=== PATIENT | female | born 1965 | race Caucasian/White ===

== ENCOUNTER 2017-02-24 08:32 | Day surgery (SDC) | payer OTHER ==
[~2017-02-24] VITALS: Ht 162.6 cm; Wt 99.8 kg
[2017-02-24 09:16] LABS: BASOPHILS # (AUTO) 0.3 K/uL (0.00-0.22); BASOPHILS % (AUTO) 3.9 % (0.0-2.0); EOSINOPHILS # (AUTO) 0.5 K/uL (0-0.4); EOSINOPHILS % (AUTO) 6.1 % (0.0-4.0); HEMATOCRIT 41.2 % (36-48); HEMOGLOBIN 13.2 g/dL (12.0-16.0); LYMPHOCYTES # (AUTO) 2.7 K/uL (2.5-16.5); LYMPHOCYTES % (AUTO) 33.2 % (20.5-51.1); MEAN CORPUSCULAR HEMOGLOBIN 27 pg (27-31); MEAN CORPUSCULAR HGB CONC 32 g/dL (33-37); MEAN CORPUSCULAR VOLUME 83 fL (80-94); MONOCYTES # (AUTO) 0.4 K/uL (0.8-1.0); MONOCYTES % (AUTO) 4.6 % (1.7-9.3); NEUTROPHILS # (AUTO) 4.2 K/uL (1.8-7.7); NEUTROPHILS % (AUTO) 52.2 % (42.2-75.2); PLATELET COUNT (AUTO) 215 K/uL (140-450); RED BLOOD CELL COUNT(AUTO) 4.97 MIL/uL (4.20-5.40); RED CELL DISTRIBUTION WIDTH 12.9 % (11.6-13.7); WHITE BLOOD COUNT (AUTO) 8.1 K/uL (4.8-10.8)
[2017-02-24] MEDS ORDERED: METF500T2 PO (09:23)
[2017-02-24] MEDS ORDERED: LIRA6SOL SC (09:23)
[2017-02-24] MEDS ORDERED: [UNRECOGNIZED DRUG - CODE] PO (09:23)
[2017-02-24] MEDS ORDERED: INSU100S22 SUBQ (09:23)
[2017-02-24] MEDS ORDERED: LITH300T7 PO (09:23)
[2017-02-24] MEDS ORDERED: [UNRECOGNIZED DRUG - CODE] PO (09:23)
[2017-02-24] MEDS ORDERED: DULO20EC PO (09:23)
[2017-02-24 09:29] LABS: PARTIAL THROMBOPLASTIN TIME 21.6 secs (22-35.6); PROTHROMBIN TIME 9.8 secs (10.8-13.4)
[2017-02-24] MEDS ORDERED: LIDOCAINE 2% 1000 MG/50 ML VIAL INJ ONE (09:34)
== END 2017-02-24 11:24 | disposition home or self-care (01) ==
LOC: MDS 08:32
PROVIDERS: ATTEND Internal Medicine Gastroenterology
DX: B19.20 Unspecified viral hepatitis C without hepatic coma (principal); E11.9 Type 2 diabetes mellitus without complications; F41.9 Anxiety disorder, unspecified; K76.0 Fatty (change of) liver, not elsewhere classified; E78.5 Hyperlipidemia, unspecified; Z98.890 Other specified postprocedural states
CPT/HCPCS: 36415; 47000; 76942; 82948; 85025; 85610; 85730; 87522; J2001; Q0092; 88307; 88313